=== PATIENT | female | born 1995 | race Two or more races ===

== ENCOUNTER → 2020-05-17 | Emergency (ER) | payer OTHER ==
[~2020-05-17] VITALS: Ht 157.5 cm; Wt 61.2 kg
== END | disposition left against medical advice (07) ==
LOC: ER 09:26
DX: O20.8 Other hemorrhage in early pregnancy (principal); O26.851 Spotting complicating pregnancy, first trimester; O36.80X0 Pregnancy with inconclusive fetal viability, not applicable or unspecified; Z3A.01 Less than 8 weeks gestation of pregnancy